=== PATIENT | female | born 2000 | race Two or more races ===

== ENCOUNTER 2021-02-19 17:00 | Emergency (ER) | payer BC, OTHER ==
[~2021-02-19] VITALS: Ht 165.1 cm; Wt 90.7 kg
[2021-02-19 17:43] LABS: Basophils # (auto) 0 10 ^3/uL (0-0.2); Basophils % (auto) 0.2 % (0.0-2.0); Eosinophils # (auto) 0.2 10 ^3/uL (0-0.8); Eosinophils % (auto) 1.6 % (0.0-7.0); Hematocrit 40.7 % (36.0-46.0); Lymphocytes # (auto) 4.2 10 ^3/uL (0.4-5.4); Lymphocytes % (auto) 30.8 % (10.0-50.0); Mean Corpuscular Hemoglobin 32.1 pg (28.0-32.0); Mean Corpuscular Hgb Conc. 34.5 g/dL (32.0-36.0); Mean Corpuscular Volume 92.9 fL (80.0-100.0); Monocytes # (auto) 0.6 10 ^3/uL (0-1.3); Monocytes % (auto) 4.5 % (0.0-12.0); Neutrophils # (auto) 8.5 10 ^3/uL (1.6-8.6); Neutrophils % (auto) 62.9 % (37.0-80.0); Nucleated Red Blood Cells % 0.1 %; Platelet Count (auto) 355 10^3/uL (140-450); Red Blood Cells 4.38 10^6/uL (4.0-5.20); Red Cell Distribution Width 13.7 % (11.8-14.3); White Blood Cell 13.5 10^3/uL (4.4-10.8)
[2021-02-19 17:52] LABS: Albumin 3.7 g/dL (3.4-5.0); Anion Gap 11 (5-15); Blood Alcohol < 3.0 mg/dL (0-5); Blood Urea Nitrogen 9 mg/dL (7-18); Calcium 9.3 mg/dL (8.5-10.1); Carbon Dioxide 21 mmol/L (21-32); Chloride 108 mmol/L (98-107); Glucose 159 mg/dL (74-106); Sodium 140 mmol/L (136-145)
[2021-02-19 17:55] LABS: Amphetamine Screen, Urine NEGATIVE (NEGATIVE); Barbiturate Scree,Urine NEGATIVE (NEGATIVE); Benzodiazephine Screen, Urine POSITIVE (NEGATIVE); Cannabinoid Screen, Urine POSITIVE (NEGATIVE); Cocaine Screen, Urine NEGATIVE (NEGATIVE); Opiate Scree,Urine NEGATIVE (NEGATIVE); Phencyclidine Screen, Urine NEGATIVE (NEGATIVE)
[2021-02-19 17:56] LABS: Alanine Aminotransferase 20 U/L (13-56); Alkaline Phosphatase 93 U/L (45-117); Aspartate Aminotransferase 14 U/L (15-37); BUN/Creatinine Ratio 13.2; Bilirubin, Total 0.2 mg/dL (0.2-1.0); GFR African American 142 mL/min; GFR Non-African American 117 mL/min; Total Protein 7.4 g/dL (6.4-8.2)
[2021-02-19] MEDS ORDERED: levETIRAcetam 500 MG/5ML INJ IV ONE (18:16)
[2021-02-19 18:18] LABS: Potassium 2.9 mmol/L (3.5-5.1)
[2021-02-19] MEDS ORDERED: POTASSIUM CHL 20MEQ/100ML 100 ML IV ONE (18:30)
[2021-02-19 18:56] VITALS: BP 122/71
[2021-02-19 19:22] LABS: INR 1.04 (0.9-1.15); Partial Thromboplastin Time 24.8 sec (23.0-31.2)
== END 2021-02-19 19:13 | disposition short-term general hospital (02) ==
LOC: EDBD 17:00 → ER 17:00
DX: G40.89 Other seizures (principal); Z20.822 Contact with and (suspected) exposure to COVID-19
CPT/HCPCS: 36415; 70450; 80053; 80307; 80320; 81025; 85025; 85610; 85730; 87426; 93005; 96365; 99291; J1953; J3480; 96360; 96361; J7060